=== PATIENT | female | born 1940 | race Caucasian/White ===

== ENCOUNTER 2017-06-17 05:36 | Inpatient (IN) ==
[2017-06-17] MEDS ORDERED: VANCOMYCIN INJ 1,000 MG in SODIUM CHLORIDE 0.9% 250 ML IV ONE (06:00)
[2017-06-17] MEDS ORDERED: DIAZEPAM 5 MG TABLET PO ONE (06:00)
[2017-06-17] MEDS ORDERED: SCOPOLAMINE 1.5 MG PATCH TRANSDERM ONE ×2 (06:45→08:50)
[2017-06-17] MEDS ORDERED: LACTATED RINGERS 1,000 ML IV SCH (07:00)
[2017-06-17] MEDS ORDERED: VANCOMYCIN 1,000 MG VIAL ONE (07:55)
[2017-06-17] MEDS ORDERED: DIAZEPAM 5 MG TABLET ONE (07:55)
[2017-06-17] MEDS ORDERED: FAMOTIDINE 20 MG TABLET ONE (07:55)
[2017-06-17] MEDS ORDERED: ceFAZolin 1,000 MG VIAL ONE (07:55)
[2017-06-17] MEDS ORDERED: SODIUM CHLORIDE 0.9% 50 ML IV ONE (07:56)
[2017-06-17] MEDS ORDERED: FAMOTIDINE 20 MG TABLET PO ONE (09:00)
[2017-06-17] MEDS ORDERED: ONDANSETRON 4 MG/2 ML VIAL IV PRN (10:53)
[2017-06-17] MEDS ORDERED: PROMETHAZINE 25 MG/1 ML VIAL IM PRN (10:53)
[2017-06-17] MEDS ORDERED: diphenhydrAMINE CAP 25 MG CAPSULE PO PRN (10:53)
[2017-06-17] MEDS ORDERED: LACTULOSE 20 GM/30 ML UDCUP PO PRN (10:53)
[2017-06-17] MEDS ORDERED: BISACODYL 10 MG SUPP RECTAL PRN (10:53)
[2017-06-17] MEDS ORDERED: NALOXONE 0.4 MG/ML VIAL IV PRN (10:53)
[2017-06-17] MEDS ORDERED: HYDROmorphone 2 MG/1 ML VIAL IV PRN (10:53)
[2017-06-17] MEDS ORDERED: MAGNESIUM HYDROXIDE SUSP 30 ML UDCUP PO PRN (10:53)
[2017-06-17] MEDS ORDERED: TRANEXAMIC ACID 1,000 MG/10 ML VIAL IV ONE (11:07)
[2017-06-17 12:32] LABS: Apearance,Urine CLEAR (Clear); Bilirubin,Urine Negative (Negative); Blood, Urine Small mg/dL (Negative); Glucose,Urine (UA) Negative (Negative); Ketones,Urine 5 mg/dL (Negative); Mucus,Urine Occasional /LPF (Occasional); Nitrite,Urine Negative (Negative); Protein,Urine Negative; RBC,Urine 3 /HPF (0-4); Urine Color Yellow (Yellow); Urine Specific Gravity 1.012 (1.001-1.035); Urine Urobilinogen < 2.0 EU/DL (0.2-1.0); WBC,Urine <1 /HPF (0-6)
[2017-06-17] MEDS ORDERED: PROPOFOL 500 MG/50 ML BOTTLE IV ONE (13:01)
[2017-06-17] MEDS ORDERED: MIDAZOLAM 2 MG/2 ML VIAL ONE (13:01)
[2017-06-17] MEDS ORDERED: ACETAMINOPHEN 1,000 MG/100 ML VIAL IV ONE (13:01)
[2017-06-17] MEDS ORDERED: KETOROLAC 30 MG/1 ML VIAL ONE (13:02)
[2017-06-17] MEDS ORDERED: DEXAMETHASONE 10 MG/1 ML VIAL ONE (13:02)
[2017-06-17] MEDS ORDERED: ONDANSETRON 4 MG/2 ML VIAL ONE (13:02)
[2017-06-17] MEDS: HYDROmorphone PCA 30 MG/30 ML SYRINGE IV SCH (15:15)
[2017-06-17] MEDS: DOCUSATE SODIUM 100 MG CAPSULE PO SCH (20:41)
[2017-06-17] MEDS: TEMAZEPAM 7.5 MG CAPSULE PO PRN (20:46)
[2017-06-18 05:13] LABS: Hematocrit 32.1 VOL% (35.7-47.0); Immature Granulocytes % 0.4 %; Immature Granulocytes Absolute 0.03 #; Lymphocytes # 0.7 10*3/uL (1.4-4.0); Lymphocytes % 8.3 % (21.3-54.2); Mean Corpuscular HGB Conc 34.3 GM/DL (32-36); Mean Corpuscular Hemoglobin 34 PG (27-34); Mean Corpuscular Volume 99.4 FL (87-102); Monocytes # 0.9 10*3/uL (0.11-0.8); Neutrophils # 6.7 10*3/uL (1.4-7.4); Neutrophils % 80.3 % (38.7-73.9); Platelet Count 250 T/CUMM (130-400); Red Blood Count 3.23 MC/CUMM (3.8-5.5); Red Cell Distribution Width 11.8 % (9.3-17.3); White Blood Count 8.3 T/CUMM (4-12)
[2017-06-18 05:38] LABS: Calcium 8.6 MG/DL (8.5-10.1); Osmolality,Calculated 276.7 MOS/KG (273-304); Potassium 4.6 MMOL/L (3.5-5.1)
[2017-06-18] MEDS: FONDAPARINUX 2.5 MG/0.5 ML SYRINGE SUBCUT SCH ×2 (06:02→06:05)
[2017-06-18] MEDS: OLMESARTAN 20 MG TABLET PO SCH (09:13)
[2017-06-18] MEDS: DOCUSATE SODIUM 100 MG CAPSULE PO SCH ×2 (09:15→20:39)
[2017-06-18] MEDS: HYDROmorphone PCA 30 MG/30 ML SYRINGE IV SCH (13:23)
[2017-06-18] MEDS: TEMAZEPAM 7.5 MG CAPSULE PO PRN (20:39)
[2017-06-19] MEDS: FONDAPARINUX 2.5 MG/0.5 ML SYRINGE SUBCUT SCH (06:11)
[2017-06-19 06:27] LABS: Basophils % 0.3 % (0.0-0.8); Eosinophils % 0.1 % (0.00-10.9); Hematocrit 30.2 VOL% (35.7-47.0); Hemoglobin 10.3 GM/DL (12.0-16.0); Immature Granulocytes % 0.7 %; Immature Granulocytes Absolute 0.05 #; Lymphocytes # 0.9 10*3/uL (1.4-4.0); Lymphocytes % 11.7 % (21.3-54.2); Mean Corpuscular HGB Conc 34.1 GM/DL (32-36); Mean Corpuscular Hemoglobin 34 PG (27-34); Mean Corpuscular Volume 99.7 FL (87-102); Mean Platelet Volume 11.2 FL (9.6-12.0); Neutrophils # 5.7 10*3/uL (1.4-7.4); Neutrophils % 74.2 % (38.7-73.9); Platelet Count 195 T/CUMM (130-400); Red Blood Count 3.03 MC/CUMM (3.8-5.5); Red Cell Distribution Width 12.1 % (9.3-17.3); White Blood Count 7.6 T/CUMM (4-12)
[2017-06-19] MEDS: DOCUSATE SODIUM 100 MG CAPSULE PO SCH ×2 (08:31→20:54)
[2017-06-19] MEDS: OLMESARTAN 20 MG TABLET PO SCH (08:31)
[2017-06-19] MEDS ORDERED: CYANOCOBALAMIN 1000 MCG/1 ML VIAL IM ONE (11:09)
[2017-06-19] MEDS: TEMAZEPAM 7.5 MG CAPSULE PO PRN (20:53)
[2017-06-20] MEDS: FONDAPARINUX 2.5 MG/0.5 ML SYRINGE SUBCUT SCH (06:51)
[2017-06-20] MEDS: DOCUSATE SODIUM 100 MG CAPSULE PO SCH ×2 (08:08→21:08)
[2017-06-20] MEDS: OLMESARTAN 20 MG TABLET PO SCH (08:09)
[2017-06-20] MEDS: TEMAZEPAM 7.5 MG CAPSULE PO PRN (21:08)
[2017-06-21] MEDS: FONDAPARINUX 2.5 MG/0.5 ML SYRINGE SUBCUT SCH (06:37)
[2017-06-21 08:12] VITALS: BP 112/64
[2017-06-21] MEDS: OLMESARTAN 20 MG TABLET PO SCH (08:32)
[2017-06-21] MEDS: DOCUSATE SODIUM 100 MG CAPSULE PO SCH (08:32)
== END 2017-06-21 12:00 | DRG 470 ==
LOC: N.OR 05:36 → N.SDSINP 05:36 → N.3E 10:53
PROVIDERS: ADMIT Orthopaedic Surgery; ATTEND Orthopaedic Surgery